=== PATIENT | female | born 1975 | race Native Hawaiian/Other Pacific Islander ===

== ENCOUNTER 2020-03-28 02:41 | Emergency (ER) | payer SELFPAY ==
[2020-03-28 03:00] VITALS: BP 121/81
[2020-03-28] MEDS ORDERED: ACETAMINOPHEN 500 MG TAB PO ONE (04:35)
--- NOTE | 2020-03-28 04:35 | Emergency Department Report ---
ED Extremity Problem HPI - General Chief complaint: Extremity Injury, Lower Stated complaint: BLISTERS ON BOTH FEET Source: patient Mode of arrival: Ambulatory Limitations: No Limitations - History of Present Illness Initial comments: Patient is a 45 yo WF with past medical history of Bipolar d/o and depression who is homeless and who presents to the ED with c/o acute onset persistent bilateral foot pain after walking on the streets for the last 1 month, worse in the last 2 days. Patient states that the pain is worse with ambulation or weight bearing. Patient denies fever, chills, cough, dizziness, headache, traumatic injury or weakness, chest pain, dyspnea, back pain or numbness and tingling of lower extremities bilaterally. MD Complaint: extremity pain (bilateral foot pain), other (Walking a lot due to homelessness) -: Gradual, month(s) (1) Location: lower extremity (Bilateral feet pain), bilateral lower extremity (Bilateral foot pain) History of Same: Yes -: Yes arthralgia, No fever, No associated dyspnea, No associated chest pain Radiation: none Severity scale (0 -10): 2 Quality: aching, dull Consistency: constant Improves with: rest Worsens with: weight bearing, walking, palpation Associated Symptoms: denies other symptoms, arthralgias. denies: chest pain, shortness of breath, fever, myalgias, rash - Related Data Allergies Allergy/AdvReac Type Severity Reaction Status Date / Time No Known Allergies Allergy Unverified 03/28/20 04:45 ED Review of Systems ROS: Stated complaint: BLISTERS ON BOTH FEET Other details as noted in HPI Constitutional: denies: chills, fever Eyes: denies: eye pain, eye discharge, vision change ENT: denies: ear pain, throat pain Respiratory: denies: cough, shortness of breath, wheezing Cardiovascular: denies: chest pain, palpitations Endocrine: no symptoms reported Gastrointestinal: denies: abdominal pain, nausea, diarrhea Genitourinary: denies: urgency, dysuria, discharge Musculoskeletal: arthralgia (Bilateral foot pain from walking ). denies: back pain, joint swelling Skin: denies: rash, lesions Neurological: denies: headache, weakness, paresthesias Psychiatric: denies: anxiety, depression Hematological/Lymphatic: denies: easy bleeding, easy bruising ED Past Medical Hx - Past Medical History Previous Medical History?: No Hx Psychiatric Treatment: Yes (Bipolar, depression) - Surgical History Past Surgical History?: Yes Additional Surgical History: mass removed from vagina - Social History Smoking Status: Current Every Day Smoker Substance Use Type: None ED Physical Exam - General Limitations: No Limitations General appearance: alert, in no apparent distress - Head Head exam: Present: atraumatic, normocephalic, normal inspection - Eye Eye exam: Present: normal appearance, PERRL, EOMI Pupils: Present: normal accommodation - ENT ENT exam: Present: normal exam, normal orophraynx, mucous membranes moist, TM's normal bilaterally, normal external ear exam - Neck Neck exam: Present: normal inspection, full ROM. Absent: tenderness, lymphadenopathy - Respiratory Respiratory exam: Present: normal lung sounds bilaterally. Absent: respiratory distress, wheezes, rales, chest wall tenderness - Cardiovascular Cardiovascular Exam: Present: regular rate, normal rhythm, normal heart sounds. Absent: systolic murmur, diastolic murmur, rubs, gallop - GI/Abdominal GI/Abdominal exam: Present: soft, normal bowel sounds. Absent: tenderness, guarding, rebound, hyperactive bowel sounds, hypoactive bowel sounds - Extremities Exam Extremities exam: Present: normal inspection, full ROM, tenderness (Bilateral mild foot tenderness), normal capillary refill. Absent: pedal edema, joint swelling, calf tenderness - Back Exam Back exam: Present: normal inspection, full ROM. Absent: tenderness, CVA tenderness (R), muscle spasm, paraspinal tenderness, vertebral tenderness - Neurological Exam Neurological exam: Present: alert, oriented X3, CN II-XII intact, normal gait, reflexes normal - Psychiatric Psychiatric exam: Present: normal affect, normal mood - Skin Skin exam: Present: warm, dry, intact, normal color. Absent: rash ED Course Vital Signs 03/28/20 02:57 Temperature 97.8 F Pulse Rate 95 H Respiratory 18 Rate Blood Pressure 121/81 O2 Sat by Pulse 97 Oximetry ED Medical Decision Making - Medical Decision Making This is a 45 yo WF with past medical history of Bipolar d/o and depression who is homeless and who presents to the ED with c/o acute onset persistent bilateral foot pain after walking on the streets for the last 1 month, worse in the last 2 days. Patient states that the pain is worse with ambulation or weight bearing. In the ED, the patient is alert and oriented x 3 and is in no acute distress, but sleepy and groggy but arousable. Patient was treated for pain in the ED and discharged from the ED. Patient was advised to return to the ED immediately if symptoms get worse. Patient was also advised to follow up with her Primary Care Physician in 7-10 days for reevaluation. - Differential Diagnosis Muscle strain; muscle spasm Critical care attestation.: If time is entered above; I have spent that time in minutes in the direct care of this critically ill patient, excluding procedure time. ED Disposition Clinical Impression: Bilateral foot pain, Homelessness Disposition: DC- TO HOME OR SELFCARE Is pt being admited?: No Does the pt Need Aspirin: No Condition: Stable Instructions: Arthralgia (ED) Additional Instructions: Follow-up with the primary care physician as advised. Return to the ED immediately if symptoms get worse. Referrals: PRIMARY CARE, [Primary Care Provider] - 3-5 Days [facility] [Provider Group] - 3-5 Days Time of Disposition: 04:34 Print Language: TURKISH
== END 2020-03-28 05:19 | disposition home or self-care (01) ==
LOC: ED 02:41
DX: M25.571 Pain in right ankle and joints of right foot (principal); M25.572 Pain in left ankle and joints of left foot; F25.1 Schizoaffective disorder, depressive type; F17.200 Nicotine dependence, unspecified, uncomplicated; Z59.0 Homelessness
CPT/HCPCS: 99282

== ENCOUNTER 2022-01-02 20:27 | Emergency (ER) | payer SELFPAY | END 2022-01-03 09:05 | disposition left against medical advice (07) | LOC: ED 20:27 | DX: R22.33 Localized swelling, mass and lump, upper limb, bilateral (principal); Z53.21 Procedure and treatment not carried out due to patient leaving prior to being seen by health care provider ==

== ENCOUNTER 2022-01-24 02:38 | Emergency (ER) | payer SELFPAY ==
--- NOTE | 2022-01-24 05:00 | Emergency Department Report ---
<CHELI MERRITT - Last Filed: 01/24/22 04:56> ED Extremity Problem HPI - General Chief complaint: Extremity Injury, Lower Stated complaint: FOOT PAIN Source: EMS Mode of arrival: Ambulatory Limitations: No Limitations - History of Present Illness Initial comments: Patient is a 46-year-old female with a history of chronic bipolar disorder and depression who presents to the ED with complaint of persistent bilateral foot pain after walking for a while in the last 2 days. Patient states that any movement or bearing weight on bilateral of plantar feet worsen the pain. Patient denies fall, traumatic injury, nausea and vomiting, chest pain, shortness of breath, fever, chills, low back pain, hip pain, heavy lifting or cough. MD Complaint: extremity pain (Bilateral foot pain) -: Sudden, hour(s), days(s) (2) Location: bilateral lower extremity (Bilateral foot pain) History of Same: No -: Yes arthralgia Radiation: distal Severity scale (0 -10): 4 Quality: aching, sharp Consistency: constant Improves with: nothing Worsens with: walking, exertion, palpation Associated Symptoms: denies other symptoms. denies: chest pain, shortness of breath, fever, myalgias, arthralgias, rash, other - Related Data Previous Rx's Medication Instructions Recorded Last Taken Type Ibuprofen [Motrin] 600 mg PO Q8H PRN #24 tablet 01/24/22 Unknown Rx Allergies Allergy/AdvReac Type Severity Reaction Status Date / Time No Known Allergies Allergy Unverified 03/28/20 04:45 ED Review of Systems Constitutional: denies: chills, fever Eyes: denies: eye pain, eye discharge, vision change ENT: denies: ear pain, throat pain Respiratory: denies: cough, shortness of breath, wheezing Cardiovascular: denies: chest pain, palpitations Endocrine: no symptoms reported Gastrointestinal: denies: abdominal pain, nausea, diarrhea Genitourinary: denies: urgency, dysuria, discharge Musculoskeletal: arthralgia (Bilateral plantar foot pain). denies: back pain, joint swelling Skin: denies: rash, lesions Neurological: denies: headache, weakness, paresthesias Psychiatric: denies: anxiety, depression Hematological/Lymphatic: denies: easy bleeding, easy bruising ED Past Medical Hx - Past Medical History Hx Psychiatric Treatment: Yes (Bipolar, depression) - Surgical History Additional Surgical History: mass removed from vagina - Social History Smoking Status: Current Every Day Smoker Substance Use Type: None - Medications Home Medications: Home Medications Medication Instructions Recorded Confirmed Last Taken Type Ibuprofen [Motrin] 600 mg PO Q8H PRN #24 tablet 01/24/22 Unknown Rx ED Physical Exam - General Limitations: No Limitations General appearance: alert, in no apparent distress - Head Head exam: Present: atraumatic, normocephalic, normal inspection - Eye Eye exam: Present: normal appearance, PERRL, EOMI Pupils: Present: normal accommodation - ENT ENT exam: Present: normal exam, normal orophraynx, mucous membranes moist, TM's normal bilaterally, normal external ear exam - Neck Neck exam: Present: normal inspection, full ROM. Absent: tenderness - Respiratory Respiratory exam: Present: normal lung sounds bilaterally. Absent: respiratory distress, wheezes, rales, rhonchi, chest wall tenderness, accessory muscle use, prolonged expiratory - Cardiovascular Cardiovascular Exam: Present: regular rate, normal rhythm, normal heart sounds. Absent: systolic murmur, diastolic murmur, rubs, gallop - GI/Abdominal GI/Abdominal exam: Present: soft, normal bowel sounds. Absent: tenderness, guarding, hyperactive bowel sounds, hypoactive bowel sounds - Extremities Exam Extremities exam: Present: normal inspection, full ROM, tenderness (Palpable mild bilateral diffuse musculoskeletal foot tenderness), normal capillary refill. Absent: pedal edema, joint swelling, calf tenderness - Back Exam Back exam: Present: normal inspection, full ROM. Absent: tenderness, CVA tenderness (R), CVA tenderness (L), muscle spasm, paraspinal tenderness, vertebral tenderness - Neurological Exam Neurological exam: Present: alert, oriented X3, CN II-XII intact, normal gait, reflexes normal - Psychiatric Psychiatric exam: Present: normal affect, normal mood - Skin Skin exam: Present: warm, dry, intact, normal color. Absent: rash ED Medical Decision Making - Medical Decision Making This is a 46-year-old female with a history of chronic bipolar disorder and depression who presents to the ED with complaint of persistent bilateral foot pain after walking for a while in the last 2 days. Patient states that any movement or bearing weight on bilateral of plantar feet worsen the pain. In the ED, patient is alert and oriented x3 and is not in any distress. Patient is hemodynamically stable. Patient was treated for pain and discharged home on pain medications and advised to follow-up with her primary care physician in 7 to 10 days for reevaluation or return to the ED immediately if symptoms get worse. - Differential Diagnosis Muscle strain; plantar fasciitis; muscle spasm; ED Disposition Clinical Impression: Musculoskeletal pain of extremity Muscle strain of foot Qualifiers: Encounter type: initial encounter Laterality: unspecified laterality Qualified Code(s): S96.919A - Strain of unspecified muscle and tendon at ankle and foot level, unspecified foot, initial encounter Disposition: HOME / SELF CARE / HOMELESS Is pt being admited?: No Does the pt Need Aspirin: No Condition: Stable Instructions: Muscle Strain, [id number], Musculoskeletal Pain, Pain Without a Known Cause Additional Instructions: Take medication with food, drink plenty of fluids and follow-up with your primary care physician in 7 to 10 days for reevaluation. Return to the ED immediately if symptoms get worse. Prescriptions: Ibuprofen [Motrin] 600 mg PO Q8H PRN #24 tablet PRN Reason: Pain Referrals: [facility] [Provider Group] - 7-10 days Time of Disposition: 05:01 Print Language: AUSTRALIAN <ERAN TONG U - Last Filed: 01/26/22 16:44> ED Review of Systems ROS: Stated complaint: FOOT PAIN Other details as noted in HPI ED Course Vital Signs 01/24/22 01/24/22 01/24/22 02:49 05:15 06:32 Pulse Rate 70 74 Respiratory 16 16 12 Rate Blood Pressure 132/86 136/84 [Left] O2 Sat by Pulse 98 100 Oximetry ED Medical Decision Making - Medical Decision Making I have reviewed the PA/CERTIFIED HAND THERAPIST's note and plan of care. I was available for con sultation as needed at all times during the patient's visit in the emergency department but was not consulted on this case. I agree with the plan to return to the ER if the patient's symptoms worsen or do not improve. Critical care attestation.: If time is entered above; I have spent that time in minutes in the direct care of this critically ill patient, excluding procedure time.
[2022-01-24] MEDS ORDERED: ACETAMINOPHEN 325 MG TAB PO ONE (05:02)
[2022-01-24 06:32] VITALS: BP 136/84
== END 2022-01-24 06:32 | disposition home or self-care (01) ==
LOC: ED 02:38
DX: S96.919A Strain of unspecified muscle and tendon at ankle and foot level, unspecified foot, initial encounter (principal); M79.18 Myalgia, other site; F31.9 Bipolar disorder, unspecified; Z79.899 Other long term (current) drug therapy; Z98.890 Other specified postprocedural states; F17.200 Nicotine dependence, unspecified, uncomplicated; Y93.89 Activity, other specified; X58.XXXA Exposure to other specified factors, initial encounter; Y92.89 Other specified places as the place of occurrence of the external cause; Y99.8 Other external cause status
CPT/HCPCS: 99283